=== PATIENT | male | born 1965 | race Caucasian/White ===

== ENCOUNTER 2021-06-06 21:29 | Emergency (ER) | payer BC | END 2021-06-07 00:13 | disposition home or self-care (01) | LOC: ERS 21:29 | DX: S12.040A Displaced lateral mass fracture of first cervical vertebra, initial encounter for closed fracture (principal); W22.8XXA Striking against or struck by other objects, initial encounter | CPT/HCPCS: 70450; 70496; 70498; 72125 ==